=== PATIENT | female | born 1970 | race Caucasian/White ===

== ENCOUNTER 2019-06-21 14:34 | Emergency (ER) | payer SELFPAY ==
[~2019-06-21 14:34] MED LIST: ALBU90OI INH; Amoxicillin500 MG PO; CALCA500CH; CLON.5 PO; Cerovite Advan1 EACH PO; FLONASE ALLERG9.9 ML NS; GABA300 PO; IBUP600 PO; LAVAP17G; Milk Thistle175 M1 PO; OLAN10 PO; OLAN2.5 PO; ZYPREXA PO
[2019-06-21] MEDS ORDERED: IBUP400 PO (22:54)
== END 2019-06-21 14:42 | disposition left against medical advice (07) ==
LOC: ER 14:34
DX: Z53.21 Procedure and treatment not carried out due to patient leaving prior to being seen by health care provider (principal)